=== PATIENT | female | born 1995 | race Caucasian/White ===

== ENCOUNTER 2016-09-26 09:26 | Emergency (ER) | payer BC ==
[2016-09-26 09:33] VITALS: BP 133/84; PULSE 94; TEMP 97.8; BMI 28.3
[2016-09-26] MEDS ORDERED: OXYCODONE/APAP 5/325MG COMBO TABLET PO ONE (10:19)
[2016-09-26] MEDS ORDERED: OXYCODONE/APAP 5/325MG COMBO TABLET ONE (10:22)
--- NOTE | 2016-09-26 10:27 | PDOC ---
History of Present Illness - General Chief Complaint: Abscess Boil Stated Complaint: WOUND ON BUTTOCK Time Seen by Provider: 09/26/16 09:45 History Source: Patient Exam Limitations: No Limitations - History of Present Illness Initial Comments: 09/26/16 10:58 20 yr female with c/o pilonidal abscess. Pt has had many times before. no fever or chills no abdominal pain. no medical history or allergies. Timing/Duration: reports: constant, getting worse Severity: Yes: moderate Past History - Past Medical History Allergies/Adverse Reactions: Allergies Allergy/AdvReac Type Severity Reaction Status Date / Time No Known Allergies Allergy Verified 09/26/16 09:31 Home Medications: Ambulatory Orders Oxycodone HCl/Acetaminophen [Percocet 5-325 mg Tablet] 1 tab PO Q6H PRN #8 tablet MDD 4 tabs 09/26/16 Other medical history: none - Immunization History Immunization Up to Date: Yes - Psycho/Social/Smoking Cessation Hx Anxiety: No Suicidal Ideation: No Smoking History: Never smoked Have you smoked in the past 12 months: No Number of Cigarettes Smoked Daily: 0 Cigars Per Day: 0 Information on smoking cessation initiated: No Hx Alcohol Use: No Drug/Substance Use Hx: No Substance Use Type: None Review of Systems - Review of Systems Able to Perform ROS?: Yes Is the patient limited Welsh proficient: No Constitutional: No: Symptoms Reported HEENTM: No: Symptoms Reported Respiratory: No: Symptoms reported Cardiac (ROS): No: Symptoms Reported ABD/GI: No: Symptoms Reported : No: Symptoms Reported Integumentary: Yes: See HPI *Physical Exam - Vital Signs Last Vital Signs Temp Pulse Resp BP Pulse Ox 97.8 F 94 H 18 133/84 100 09/26/16 09:31 09/26/16 09:31 09/26/16 09:31 09/26/16 09:31 09/26/16 09:31 - Physical Exam General Appearance: Yes: Nourished, Appropriately Dressed HEENT: positive: EOMI, STEVE Neck: positive: Supple Respiratory/Chest: positive: Lungs Clear, Normal Breath Sounds Cardiovascular: positive: Regular Rhythm, Regular Rate Integumentary: positive: Normal Color, Dry, Warm, Other (abscess to the right inner fold , pilonidal area , fluctuant [id number]) Neurologic: positive: Fully Oriented, Alert, Normal Mood/Affect, Normal Response , Motor Strength 5/5 Procedures - Incision and Drainage I&D Site: Right: Buttock (pilonidal area to the right inner fold of the buttock) Betadine cleansed: Yes Anesthesia: other (ethyl chloride spray) Blade Size: 11 Attempts: 1 Plain Packing: No Complications: none Dressing: Yes Progress: 09/26/16 11:03 wound culture obtained, purulent green yellow pus Medical Decision Making - Medical Decision Making 09/26/16 11:03 cc: pilonidal abscess without cellulitus wound culture taken pt tolerated I&D well dc inst given to pt with strict follow up with the general surgeon as pt has had many abscesses 09/26/16 11:05 *DC/Admit/Observation/Transfer Diagnosis at time of Disposition: Pilonidal abscess - Discharge Dispostion Disposition: HOME Condition at time of disposition: Improved - Prescriptions Prescriptions: Oxycodone HCl/Acetaminophen [Percocet 5-325 mg Tablet] 1 tab PO Q6H PRN #8 tablet MDD 4 tabs PRN Reason: Severe Pain - Referrals Referrals: Zoey Suazo MD [Primary Care Provider] - Jeevan Kebede MD [Staff Physician] - Coy Pierson [Staff Physician] - - Patient Instructions Additional Instructions: frequent warm sitz baths to keep the are clean and dry ( use a squirt bottle filled with warm water to gently clean the area) take percocet for pain take motrin 800mg also for pain , you can take with the percocet follow with the surgeon or the surgeon for follow up avoid frequent sitting
== END 2016-09-26 10:39 | disposition home or self-care (01) ==
LOC: JERFT 09:26
PROC: 0H98XZZ Drainage of Buttock Skin, External Approach (ICD-10-PCS; principal; 2016-09-26)
DX: L05.01 Pilonidal cyst with abscess (principal)
CPT/HCPCS: 87070; 87076; 87077; 87205; 99281-25

== ENCOUNTER 2017-05-26 05:14 | Day surgery (SDC) | payer BC ==
--- NOTE | 2017-05-26 05:36 | PDOC ---
History of Present Illness - General History Source: Patient, Parent(s) Exam Limitations: No Limitations - History of Present Illness Initial Comments: 05/26/17 07:00 Patient is a 21 year old female with no significant past medical history who presents to the ED with complaints of growth on lower back. Patient reports experiencing increased lower back pain last night that she states prevented her from sleeping, as well as associated oozing from growth, prompting her to come into the ED for further evaluation. She reports growth has come back every 6 months for the last 2 years. Patient reports going to surgeon once sometime ago but states she did not like the surgeon so she did not return. Denies chest pain, sob. Denies nausea, vomiting. Denies fevers, chills. Denies diarrhea, constipation, dysuria, hematuria. Denies any other symptoms. Allergies: None Social history: No smoking. No alcohol. No illicit drugs. Surgical history: None PMD: None <Marko Quintero - Last Filed: 05/26/17 07:00> <Maritza Bardales - Last Filed: 06/01/17 05:35> - General Stated Complaint: GROWTH ON LOWER BACK Time Seen by Provider: 05/26/17 05:36 Past History <Marko Quintero - Last Filed: 05/26/17 07:00> - Immunization History Immunization Up to Date: Yes - Suicide/Smoking/Psychosocial Hx Smoking History: Never smoked Have you smoked in the past 12 months: No Number of Cigarettes Smoked Daily: 0 Cigars Per Day: 0 Hx Alcohol Use: No Drug/Substance Use Hx: No Substance Use Type: None <Maritza Bardales - Last Filed: 06/01/17 05:35> - Past Medical History Allergies/Adverse Reactions: Allergies Allergy/AdvReac Type Severity Reaction Status Date / Time No Known Allergies Allergy Verified 05/26/17 05:53 Home Medications: Ambulatory Orders Amox-Tr/K Cl [Augmentin - 875Mg Tablet] 1 tab PO BID 10 Days #20 tablet Ibuprofen [Motrin -] 600 mg PO Q6H PRN tablet 05/26/17 metroNIDAZOLE [Flagyl -] 500 mg PO TID #10 tablet 05/26/17 Review of Systems - Review of Systems Able to Perform ROS?: Yes Comments:: 05/26/17 07:00 GENERAL/CONSTITUTIONAL: No fever or chills. No weakness. HEAD, EYES, EARS, NOSE AND THROAT: No change in vision. No ear pain or discharge. No sore throat. CARDIOVASCULAR: No chest pain or shortness of breath. RESPIRATORY: No cough, wheezing, or hemoptysis. GASTROINTESTINAL: No nausea, vomiting, diarrhea or constipation. GENITOURINARY: No dysuria, frequency, or change in urination. MUSCULOSKELETAL: No joint or muscle swelling or pain. No neck or back pain. SKIN: +Lower back growth NEUROLOGIC: No headache, vertigo, loss of consciousness, or change in strength/ sensation. ENDOCRINE: No increased thirst. No abnormal weight change. HEMATOLOGIC/LYMPHATIC: No anemia, easy bleeding, or history of blood clots. ALLERGIC/IMMUNOLOGIC: No hives or skin allergy. <Marko Quintero - Last Filed: 05/26/17 07:00> *Physical Exam - Vital Signs Last Vital Signs Temp Pulse Resp BP Pulse Ox 97.7 F 72 18 110/70 99 05/26/17 05:54 05/26/17 05:54 05/26/17 05:54 05/26/17 05:54 05/26/17 05:54 - Physical Exam Comments: 05/26/17 07:00 GENERAL: Awake, alert, and fully oriented, in no acute distress HEAD: No signs of trauma EYES: PERRLA, EOMI, sclera anicteric, conjunctiva clear ENT: Auricles normal inspection, hearing grossly normal, nares patent, oropharynx clear without exudates. Moist mucosa NECK: Normal ROM, supple, no lymphadenopathy, JVD, or masses LUNGS: Breath sounds equal, clear to auscultation bilaterally. No wheezes, and no crackles HEART: Regular rate and rhythm, normal S1 and S2, no murmurs, rubs or gallops ABDOMEN: Soft, nontender, normoactive bowel sounds. No guarding, no rebound. No masses EXTREMITIES: Normal range of motion, no edema. No clubbing or cyanosis. No cords, erythema, or tenderness NEUROLOGICAL: Cranial nerves II through XII grossly intact. Normal speech, normal gait SKIN: +1.5 cm diameter round bulging abscess with 3 cm erythematous surrounding on lower back. Warm, Dry, normal turgor, no rashes or lesions noted. <Marko Quintero - Last Filed: 05/26/17 07:00> ED Treatment Course - LABORATORY CBC & Chemistry Diagram: 05/26/17 06:27 05/26/17 06:27 - ADDITIONAL ORDERS Additional order review: Laboratory Results 05/26/17 05:52 POC Glucometer [id number] 05/26/17 05:52 POC Glucometer [id number] <Marko Quintero - Last Filed: 05/26/17 07:00> - LABORATORY CBC & Chemistry Diagram: 05/26/17 06:27 05/26/17 06:27 <Maritza Bardales - Last Filed: 06/01/17 05:35> Medical Decision Making - Medical Decision Making 05/26/17 06:12 Pt returns with her pilonidal cyst. I will call for a surgical consult this AM. 05/26/17 06:37 We will not drain the abscess in the ER, as pt kees returning, and the cyst progessively gets worse/ 05/26/17 07:[address] [facility] [address] Nesbitt and he has not returned page. Consult placed in the computer. Pt understands that we are waiting for gen surg. Pt will be signed out to the day ER team. <Maritza Bardales - Last Filed: 06/01/17 05:35> *DC/Admit/Observation/Transfer - Attestations Scribe Attestion: 05/26/17 07:00 Documentation prepared by Marko Quintero, acting as resident medical officer for Maritza Bardales MD/DO. <Marko Quintero - Last Filed: 05/26/17 07:00> <Maritza Bardales - Last Filed: 06/01/17 05:35> Diagnosis at time of Disposition: Pilonidal abscess - Discharge Dispostion Disposition: HOME Condition at time of disposition: Improved
[2017-05-26 06:05] VITALS: BMI 24.9
[2017-05-26 06:47] LABS: BASO % 0.6 % (0-2.0); EOS % 0.4 % (0-4.5); HEMATOCRIT 38.7 % (32.4-45.2); HEMOGLOBIN 12.8 GM/dL (10.7-15.3); LYMPH % 15.5 % (8-40); MCH 28.3 pg (25.7-33.7); MCHC 33.2 g/dl (32.0-36.0); MEAN CELL VOLUME 85.1 fl (80-96); MEAN PLT VOLUME 9.1 fl (7.5-11.1); MONO % 7.6 % (3.8-10.2); NEUT % 75.9 % (42.8-82.8); PLATELET COUNT 339 K/MM3 (134-434); RBC 4.54 M/mm3 (3.60-5.2); RDW 15.6 % (11.6-15.6); WHITE BLOOD COUNT 12.8 K/mm3 (4.0-10.0)
[2017-05-26 07:09] LABS: INR 1.28 (0.82-1.09); PROTHROMBIN TIME (PATIENT) 14.5 SEC (9.98-11.88)
[2017-05-26 07:30] LABS: ALK PHOS 82 U/L (45-117); ANION GAP 7 (8-16); BILIRUBIN,TOTAL 0.8 mg/dL (0.2-1.0); BLOOD UREA NITROGEN 8 mg/dL (7-18); CALCIUM 9.1 mg/dL (8.5-10.1); CHLORIDE 107 mmol/L (98-107); CO2 26 mmol/L (21-32); CREATININE 0.7 mg/dL (0.55-1.02); GLUCOSE,RANDOM 99 mg/dL (74-106); SGOT/AST 10 U/L (15-37); SGPT/ALT 12 U/L (12-78); SODIUM 140 mmol/L (136-145); TOT PROT 8.1 g/dl (6.4-8.2)
--- NOTE | 2017-05-26 07:35 | PDOC ---
*Physical Exam - Vital Signs Last Vital Signs Temp Pulse Resp BP Pulse Ox 97.7 F 72 18 110/70 99 05/26/17 05:54 05/26/17 05:54 05/26/17 05:54 05/26/17 05:54 05/26/17 05:54 <Denisse Fonseca - Last Filed: 05/26/17 08:01> - Vital Signs Last Vital Signs Temp Pulse Resp BP Pulse Ox 97.7 F 72 18 110/70 99 05/26/17 05:54 05/26/17 05:54 05/26/17 05:54 05/26/17 05:54 05/26/17 05:54 <Mary De Guzman - Last Filed: 05/26/17 16:06> ED Treatment Course - LABORATORY CBC & Chemistry Diagram: 05/26/17 06:27 05/26/17 06:27 - ADDITIONAL ORDERS Additional order review: Laboratory Results 05/26/17 05/26/17 06:27 05:52 PT with INR 14.50 H INR 1.28 H POC Glucometer [id number] 05/26/17 05/26/17 06:27 05:52 RBC 4.54 MCV 85.1 MCHC 33.2 RDW 15.6 MPV 9.1 Neutrophils % 75.9 Lymphocytes % 15.5 Monocytes % 7.6 Eosinophils % 0.4 Basophils % 0.6 POC Glucometer [id number] <Denisse Fonseca - Last Filed: 05/26/17 08:01> - LABORATORY CBC & Chemistry Diagram: 05/26/17 06:27 05/26/17 06:27 - ADDITIONAL ORDERS Additional order review: Laboratory Results 05/26/17 05:52 POC Glucometer [id number] 05/26/17 05:52 POC Glucometer [id number] <Mary De Guzman - Last Filed: 05/26/17 16:06> Medical Decision Making - Medical Decision Making 05/26/17 07:[address] Nesbitt (Gen Surgery). <Denisse Fonseca - Last Filed: 05/26/17 08:01> - Medical Decision Making 05/26/17 09:19 Dr. Nesbitt at bedside, recommended resecting the cyst in OR, as it is a significant size. Patient agrees, to be admitted to Dr. Nesbitt. <Mary De Guzman - Last Filed: 05/26/17 16:06> *DC/Admit/Observation/Transfer <Denisse Fonseca - Last Filed: 05/26/17 08:01> - Discharge Dispostion Admit: Yes <Mary De Guzman - Last Filed: 05/26/17 16:06> Diagnosis at time of Disposition: Pilonidal abscess - Discharge Dispostion Condition at time of disposition: Improved
[2017-05-26] MEDS ORDERED: MORPHINE SULFATE 10 MG/1 ML *VIAL IVPUSH PRN (09:29)
[2017-05-26] MEDS ORDERED: IBUPROFEN 600 MG TABLET (FP) PO PRN (09:29)
[2017-05-26] MEDS ORDERED: ONDANSETRON 4 MG/2 ML VIAL IVPUSH PRN ×2 (09:29→11:55)
--- NOTE | 2017-05-26 09:29 | CONSULT ---
Consult Consult Specialty:: general surgery Referred by:: Zayra De Guzman Reason for Consultation:: pilonidal abscess - History of Present Illness Chief Complaint: recurrent pilonidal abscess History of Present Illness: 21-year-old female no PMH presents to the emergency department complaint of swelling to her right superior medial buttocks. She has seen at least 4 times for I&D of the pilonidal abscess but its recurrent in the same area. Patient states that she has had 5 form at this point in the past. Patient states that she did see her primary care physician today who evaluated the area, started the patient clindamycin and referred her to a surgeon. Patient states that she came to the emergency department because the pain continues to worsen. Patient denies fever or chills. We were asked to assess. - History Source History Provided By: Patient, Medical Record Limitations to Obtaining History: No Limitations - Past Surgical History Additional Surgical History: excsion of breast fibroadenoma - Alcohol/Substance Use Hx Alcohol Use: No - Smoking History Smoking history: Never smoked Have you smoked in the past 12 months: No Aproximately how many cigarettes per day: 0 - Social History Place of : [facility] History of Recent Travel: No Home Medications - Allergies Allergies/Adverse Reactions: Allergies Allergy/AdvReac Type Severity Reaction Status Date / Time No Known Allergies Allergy Verified 05/26/17 05:53 - Home Medications Home Medications: Ambulatory Orders NK [No Known Home Medication] 05/26/17 Review of Systems - Review of Systems Constitutional: denies: Chills, Fever Eyes: denies: Blind Spots, Recent Change in Vision Neck: denies: Lumps, Swollen Glands Cardiovascular: denies: Chest Pain, Palpitations Respiratory: denies: Cough, SOB Gastrointestinal: denies: Abdominal Pain, Constipation, Diarrhea, Indigestion Genitourinary: denies: Discharge, Dysuria Breasts: reports: No Symptoms Reported. denies: Pain Musculoskeletal: denies: Extremity Pain, Muscle Pain, Muscle Weakness Integumentary: reports: Wound (right gluteal). denies: Erythema, Lesions, Rash Neurological: denies: Change in LOC, Seizure, Syncope, Tremors Endocrine: denies: Unexplained Weight Gain, Unexplained Weight Loss Hematology/Lymphatic: denies: Easily Bruised, Excessive Bleeding Psychiatric: denies: Anxiety, Depression Physical Exam Vital Signs: Vital Signs Temperature 97.7 F 05/26/17 05:54 Pulse Rate 72 05/26/17 05:54 Respiratory Rate 18 05/26/17 05:54 Blood Pressure 110/70 05/26/17 05:54 O2 Sat by Pulse Oximetry (%) 99 05/26/17 05:54 Vital Signs Period Temp Pulse Resp BP Sys/Mar Pulse Ox Last 24 Hr 97.7 F-98.6 F 66-72 18-18 110-116/70-74 99-99 Constitutional: Yes: Well Nourished, No Distress, Calm Eyes: Yes: Conjunctiva Clear, EOM Intact HENT: Yes: Atraumatic, Normocephalic Neck: Yes: Supple, Trachea Midline Cardiovascular: Yes: Regular Rate and Rhythm, S1, S2. No: Murmur Respiratory: Yes: Regular, CTA Bilaterally Gastrointestinal: Yes: Normal Bowel Sounds, Soft. No: Hemorrhoids, Tenderness ...Rectal Exam: Yes: Guaiac Negative, Sphincter Tone Normal, Other (right upper gluteal fold [id number] fluctuant area) Renal/: No: CVA Tenderness - Left, CVA Tenderness - Right Musculoskeletal: No: Muscle Pain, Muscle Weakness Extremities: No: Cool, Cyanosis Neurological: No: Alert, Oriented Psychiatric: No: Alert, Oriented Labs: CBC, BMP 05/26/17 06:27 05/26/17 06:27 Problem List - Problems (1) Pilonidal abscess Assessment/Plan: 21yo with right sided pilonidal abscess, recurrent and acutely infected. NPO and IVF hydration empiric antibiotics ID consult adequate analgesia D/C with Wound Care OR for incision and drainage and debridement of pilonidal abscess - Discussed with patient risks, benefits and alternatives of proposed procedure, including but not limited to bleeding, infection, injury to adjacent structures, scar recurent abscess, need for further procedures, ; alternatives include antibiotics, delayed or no surgery - risks of this include failure of nonoperative therapy, sepsis, recurrence, . Patient desires to proceed with operation - will take to OR for above. Informed consent signed for same. Code(s): L05.01 - PILONIDAL CYST WITH ABSCESS (2) Leukocytosis (leucocytosis) Code(s): D72.829 - ELEVATED WHITE BLOOD CELL COUNT, UNSPECIFIED
[2017-05-26] MEDS ORDERED: LACTATED RINGERS SOLUTION 1,000 ML IV SCH ×2 (09:30→12:00)
[2017-05-26] MEDS ORDERED: PIPERACIL/TAZOB 3.375 GM 3.375 GM/50 ML PREMIX IVPB ONE (09:45)
[2017-05-26] MEDS ORDERED: PIPERACILLIN/TAZOB 3.375 GM 3.375 GM/50 ML BAG IVPB ONE (09:53)
[2017-05-26] MEDS ORDERED: LIDOCAINE HCL 1%, 10 MG/ML (20ML VIAL) ONE (11:58)
[2017-05-26] MEDS ORDERED: BUPIVACAINE HCL/PF 0.5% (5MG/ML) 10 ML VIAL ONE (11:58)
[2017-05-26] MEDS ORDERED: MIDAZOLAM HCL 2 MG/2 ML SINGLE DOSE VIAL ONE (12:13)
[2017-05-26] MEDS ORDERED: PROPOFOL 20 ML ONE (12:17)
[2017-05-26] MEDS ORDERED: ROCURONIUM BROMIDE 50 MG/5 ML VIAL ONE (12:17)
--- NOTE | 2017-05-26 12:17 | HP ---
Admitting History and Physical - Admission Chief Complaint: recurrent pilonidal cyst History of Present Illness: 21-year-old female no PMH presents to the emergency department complaint of swelling to her right superior medial buttocks. She has seen at least 4 times for I&D of the pilonidal abscess but its recurrent in the same area. Patient states that she has had 5 form at this point in the past. Patient states that she did see her primary care physician today who evaluated the area, started the patient clindamycin and referred her to a surgeon. Patient states that she came to the emergency department because the pain continues to worsen. Patient denies fever or chills. We were asked to assess. History Source: Patient, Medical Record Limitations to Obtaining History: No Limitations - Past Medical History ...: No - Smoking History Smoking history: Never smoked Have you smoked in the past 12 months: No Aproximately how many cigarettes per day: 0 - Alcohol/Substance Use Hx Alcohol Use: No - Social History History of Recent Travel: No Home Medications - Allergies Allergies/Adverse Reactions: Allergies Allergy/AdvReac Type Severity Reaction Status Date / Time No Known Allergies Allergy Verified 05/26/17 05:53 - Home Medications Home Medications: Ambulatory Orders NK [No Known Home Medication] 05/26/17 Review of Systems - Review of Systems Constitutional: denies: Chills, Fever Eyes: denies: Blurred Vision, Recent Change in Vision HENT: denies: Difficult Swallowing, Throat Pain Neck: denies: Lumps, Swollen Glands Cardiovascular: denies: Chest Pain, Palpitations Respiratory: denies: Cough, SOB Gastrointestinal: denies: Abdominal Pain, Constipation, Diarrhea, Indigestion Genitourinary: denies: Discharge, Dysuria Breasts: reports: No Symptoms Reported. denies: Pain Musculoskeletal: denies: Back Pain, Muscle Pain, Muscle Weakness Integumentary: denies: Lump, Rash Neurological: denies: Seizure, Syncope, Tremors Endocrine: denies: Unexplained Weight Gain, Unexplained Weight Loss Psychiatric: denies: Anxiety, Depression Physical Examination Vital Signs: Vital Signs Temperature 98.6 F 05/26/17 09:33 Pulse Rate 60 05/26/17 11:15 Respiratory Rate 18 05/26/17 11:15 Blood Pressure 120/56 05/26/17 11:15 O2 Sat by Pulse Oximetry (%) 99 05/26/17 11:15 Constitutional: Yes: Well Nourished, No Distress, Calm Eyes: Yes: Conjunctiva Clear, EOM Intact HENT: Yes: Atraumatic, Normocephalic Neck: Yes: Supple, Trachea Midline Cardiovascular: Yes: Regular Rate and Rhythm, S1, S2 Respiratory: Yes: Regular, CTA Bilaterally Gastrointestinal: Yes: Normal Bowel Sounds, Soft ...Rectal Exam: Yes: Other ([id number] fluctuant area right upper gluteal fold) Renal/: No: CVA Tenderness - Left, CVA Tenderness - Right Extremities: No: Cool, Cyanosis Edema: No Peripheral Pulses WNL: Yes Peripheral Pulses: Left Radial: 2+, Right Radial: 2+, Left Doralis Pedis: 2+, Right Dorsalis Pedis: 2+, Left Femoral: 2+, Right Femoral: 2+ Neurological: Yes: Alert, Oriented Psychiatric: Yes: Alert, Oriented Labs: CBC, BMP 05/26/17 06:27 05/26/17 06:27 Problem List - Problems (1) Pilonidal abscess Assessment/Plan: 21yo with right sided pilonidal abscess, recurrent and acutely infected. NPO and IVF hydration empiric antibiotics ID consult adequate analgesia D/C with Wound Care OR for incision and drainage and debridement of pilonidal abscess - Discussed with patient risks, benefits and alternatives of proposed procedure, including but not limited to bleeding, infection, injury to adjacent structures, scar recurent abscess, need for further procedures, ; alternatives include antibiotics, delayed or no surgery - risks of this include failure of nonoperative therapy, sepsis, recurrence, . Patient desires to proceed with operation - will take to OR for above. Informed consent signed for same. Code(s): L05.01 - PILONIDAL CYST WITH ABSCESS (2) Leukocytosis (leucocytosis) Code(s): D72.829 - ELEVATED WHITE BLOOD CELL COUNT, UNSPECIFIED
--- NOTE | 2017-05-26 12:31 | CON.ID ---
Consult Consult Specialty:: infectious diseases Referred by:: Reason for Consultation:: non healing gluetal fistula - History of Present Illness Chief Complaint: abscess gluetal recurring History of Present Illness: 21-year-old female no PMH admitted because of swelling to her right superior medial buttocks. patient has had multiple I&D of the pilonidal abscess but its recurrent in the same area. Patient states that she has had 5 form at this point in the past. patient was started by her pcp on clindamycin and was referred here patient was seen by the surgery department and is taking the patient for surgery - History Source History Provided By: Patient Limitations to Obtaining History: No Limitations - Past Medical History ...: No - Past Surgical History Additional Surgical History: excsion of breast fibroadenoma - Alcohol/Substance Use Hx Alcohol Use: No - Smoking History Smoking history: Never smoked Have you smoked in the past 12 months: No Aproximately how many cigarettes per day: 0 - Social History History of Recent Travel: No Home Medications - Allergies Allergies/Adverse Reactions: Allergies Allergy/AdvReac Type Severity Reaction Status Date / Time No Known Allergies Allergy Verified 05/26/17 05:53 - Home Medications Home Medications: Ambulatory Orders Amox-Tr/K Cl [Augmentin - 875Mg Tablet] 1 tab PO BID 10 Days #20 tablet Review of Systems - Review of Systems Constitutional: reports: No Symptoms Eyes: reports: No Symptoms HENT: reports: No Symptoms Neck: reports: No Symptoms Cardiovascular: reports: No Symptoms Respiratory: reports: No Symptoms Gastrointestinal: reports: No Symptoms Genitourinary: reports: Other (gluetal abscess) Musculoskeletal: reports: No Symptoms Integumentary: reports: No Symptoms Neurological: reports: No Symptoms Endocrine: reports: No Symptoms Hematology/Lymphatic: reports: No Symptoms Psychiatric: reports: No Symptoms Physical Exam Vital Signs: Vital Signs Temperature 98.6 F 05/26/17 09:33 Pulse Rate 60 05/26/17 11:15 Respiratory Rate 18 05/26/17 11:15 Blood Pressure 120/56 05/26/17 11:15 O2 Sat by Pulse Oximetry (%) 99 05/26/17 11:15 Constitutional: Yes: Well Nourished, No Distress, Calm Eyes: Yes: Conjunctiva Clear HENT: Yes: Atraumatic, Normocephalic Cardiovascular: Yes: Regular Rate and Rhythm Respiratory: Yes: Regular, CTA Bilaterally Gastrointestinal: Yes: Normal Bowel Sounds, Soft Musculoskeletal: Yes: WNL Extremities: Yes: WNL Neurological: Yes: Alert, Oriented Psychiatric: Yes: Alert, Oriented Labs: CBC, BMP 05/26/17 06:27 05/26/17 06:27 Assessment/Plan patient stable going for surgery Problem List - Problems (1) Pilonidal abscess Code(s): L05.01 - PILONIDAL CYST WITH ABSCESS (2) Leukocytosis (leucocytosis) Code(s): D72.829 - ELEVATED WHITE BLOOD CELL COUNT, UNSPECIFIED plan patient can be started on augmentin 875mg bid for 10 days and add flagyl 500 mg tid po for 10 days
[2017-05-26] MEDS ORDERED: fentaNYL CITRATE 250 MCG/5 ML VIAL ONE (12:32)
[2017-05-26] MEDS ORDERED: LIDOCAINE HCL 1%, 10 MG/ML (20ML VIAL) INF ONE (12:32)
[2017-05-26] MEDS ORDERED: BUPIVACAINE HCL/PF 0.5% (5MG/ML) 10 ML VIAL IJ ONE (12:32)
[2017-05-26] MEDS ORDERED: NEOSTIGMINE METHYLSULFATE 0.5 MG/ML - 10 ML MDV ONE (12:43)
--- NOTE | 2017-05-26 13:16 | DS ---
Physical Examination Vital Signs: Vital Signs Temperature 98.6 F 05/26/17 09:33 Pulse Rate 60 05/26/17 11:15 Respiratory Rate 18 05/26/17 11:15 Blood Pressure 120/56 05/26/17 11:15 O2 Sat by Pulse Oximetry (%) 99 05/26/17 11:15 Vital Signs Period Temp Pulse Resp BP Sys/Mar Pulse Ox Last 24 Hr 97.7 F-99.0 F 60-93 11-20 110-134/56-75 95-100 Constitutional: Yes: Well Nourished, No Distress, Calm Eyes: Yes: Conjunctiva Clear, EOM Intact HENT: Yes: Atraumatic, Normocephalic Neck: Yes: Supple, Trachea Midline Cardiovascular: Yes: Regular Rate and Rhythm, S1, S2. No: Murmur Respiratory: Yes: Regular, CTA Bilaterally Gastrointestinal: Yes: Normal Bowel Sounds, Soft. No: Tenderness ...Rectal Exam: Yes: Deferred Renal/: No: CVA Tenderness - Left, CVA Tenderness - Right Wound/Incision: Yes: Clean/Dry, Dressing Dry and Intact, Unapproximated (right upper gluteal fold.) Neurological: Yes: Alert, Oriented Psychiatric: Yes: Alert, Oriented Labs: CBC, BMP 05/26/17 06:27 05/26/17 06:27 Discharge Summary Reason For Visit: PILONIDAL CYST WITH ABSCESS Current Active Problems Leukocytosis (leucocytosis) (Acute) Pilonidal abscess (Acute) Procedures: Principal: pilonidal abscess Other Procedures: incision and drainge, debridement of pilonidal abscess Hospital Course: 21yo female presented with a recurrent pilonidal abscess. She was taken for an uneventful drainage and debridement procedure in the operating room. She tolerated it well and be discharged home with VNS for wound care teaching and oral antibiotics. Pilonidal wound: Wound measurement: right superior gluteal fold, 2cm X 2cm X2cm with clean soft tissue at the base not drainage Dressing instructions: 1" iodoform, 4X4 gauze sponges, and 2" tape Condition: Improved - Instructions Diet, Activity, Other Instructions: Postoperative instructions: You had a debridement of pilonidal abscess on by Dr. Epifanio Nesbitt of [facility]. Pilonidal wound: Wound measurement: right superior gluteal fold, 2cm X 2cm X2cm with clean soft tissue at the base not drainage Dressing instructions: 1" iodoform, 4X4 gauze sponges, and 2" tape Activity: Resume your usual activities gradually. Dressing daily 24 hours after surgery by VNS. You may shower daily starting then, just pat the incision areas dry. Eat lightly at first, but advance to your usual diet as tolerated. Pain: For pain, you may use and alternate Tylenol (acetaminophen) and/or ibuprofen every 6 hours each as needed; this means that you can take one OR the other at 3-hour intervals. If you are prescribed a Tylenol/narcotic combination for severe pain, use it instead of plain Tylenol as needed and switch back when your pain starts decreasing. Do not take more than 4000mg of acetaminophen in a day. Take medications as prescribed or indicated on the labeling. Follow-up: Call Dr. Nesbitt' office at [phone] to make your postop appointment (Friday 1-2 weeks after surgery as advised). Clinic is held in the Diagnostic [facility] on the first floor of [facility]. Call the office if you have: * increasing pain not responsive to pain medication * fever of 101F or higher * vomiting * unusual or increasing bleeding or drainage from wounds * increasing redness or swelling at wound sites Also, see your primary medical doctor within 1-2 weeks. Disposition: HOME - Home Medications Comprehensive Discharge Medication List: Ambulatory Orders Amox-Tr/K Cl [Augmentin - 875Mg Tablet] 1 tab PO BID 10 Days #20 tablet metroNIDAZOLE [Flagyl -] 500 mg PO TID #10 tablet 05/26/17
[2017-05-26 15:33] VITALS: TEMP 98.6
[2017-05-26 17:08] VITALS: BP 130/62; PULSE 81
--- NOTE | 2017-05-26 23:13 | EKG ---
Test Reason : Blood Pressure : / mmHG Vent. Rate : 076 BPM Atrial Rate : 076 BPM P-R Int : 122 ms QRS Dur : 088 ms QT Int : 376 ms P-R-T Axes : -26 020 002 degrees QTc Int : 423 ms NORMAL SINUS RHYTHM NORMAL ECG NO PREVIOUS ECGS AVAILABLE Confirmed by WILLIAM KURTZ MD ([id number]) on 05/26/2017 11:13:05 PM Referred By: Confirmed By:WILLIAM KURTZ MD
--- NOTE | 2017-05-27 16:19 | OP ---
DATE OF OPERATION: 05/26/2017 PREOPERATIVE DIAGNOSIS: Right-sided pilonidal area abscess. POSTOPERATIVE DIAGNOSIS: Right-sided pilonidal area abscess. PROCEDURE: Incision, drainage, and debridement of right-sided pilonidal abscess. ATTENDING SURGEON: Epifanio Nesbitt MD SITE SURVEYOR: No one. ANESTHESIA: Richelle Majano MD ESTIMATED BLOOD LOSS: 10 mL INTRAVENOUS FLUID: 600. SPECIMEN SENT: Pilonidal area abscess cavity and culture for sensitivity and Gram stain. DRAINAGE: Approximately 10 mL of foul-smelling, purulent material. INDICATION: Patient is a 21-year-old female presenting with a 4-year history with 5 episodes of recurrent pilonidal abscess in the upper gluteal fold in the pilonidal region on the right side. She had incision and drainage on at least 3 occasions with recurrence of abscess and symptoms. She noted approximately 4 days ago she had increase in pain and swelling in the area. She presented for incision and drainage. She was counseled regarding the need for incision, drainage, and debridement given her recurrent history. She was counseled regarding risks, benefits, and alternatives including scar, blood loss, worsening infection, and recurrence. She signed informed consent, was taken for the procedure. DESCRIPTION OF PROCEDURE: Patient was brought to the operating room, placed in supine position on the operating table. She had bilateral SCDs applied. She was induced with general anesthesia, endotracheally intubated. She received intravenous Zosyn prior to presenting in the operating room. Once intubated and having her airway secured, was placed into left lateral decubitus position, bolstering with a shoulder roll, a head support, and additional padding for any bony prominences. This allowed for access to the upper gluteal fold on the right side and the pilonidal region. The area was prepped and draped in standard surgical fashion. At which point, we proceeded with a timeout, all parties in agreement. We proceeded then with scribing an elliptical incision around what appeared to be the abscess cavity as palpated from the skin. The incision was incised with a 15-blade scalpel, deepened and widened through the subcutaneous tissue. Bovie cautery was used to obtain hemostasis throughout the dissection. There was a gush of pus which was sent for culture and sensitivity. The remainder of the ellipse was excised from the site. The abscess cavity was then debrided using an Allis to retract the soft tissue which appeared infected and involved in the process with cautery and scissors. Once the abscess cavity was cleared from the site, it was sent for pathologic diagnosis. We proceeded then with irrigation of the cavity, and hemostasis using cautery. The site was packed. Pressure was held for a period of 2 minutes, and additional hemostasis was obtained with cautery. The site was irrigated copiously with approximately 0.5 L of sterile irrigation fluid. The site was then cleaned and packed with 1-inch Iodoform packing. The skin was cleaned. A sterile dressing of 4 x 4 gauze and an ABD pad was applied with tape. The patient was then returned to the supine position. At which point, she was extubated in the operating room, having tolerated the procedure well. She returned to Ambulatory Surgery in stable condition. Counts were correct, specimens were sent, and patient was planned for followup with VNS for wound care and oral antibiotics. MD PENNY Wright/[id number]
--- NOTE | 2017-05-27 17:45 | PATH ---
Surgical Pathology Report Patient Name: NEVIN SIMS [facility]. Rec. #: [id number] /Age/Gender: 1995 (Age: 21) / F Account: [id number] Location: AMBULATORY SURG Taken: 05/26/2017 Received: 05/26/2017 Reported: 05/27/2017 Physicians: Epifanio Nesbitt M.D. Specimen(s) Received PILONIDAL CYST Clinical History Pilonidal abscess Final Diagnosis SKIN, PILONIDAL TISSUE, EXCISION: SKIN AND UNDERLYING SUBCUTANEOUS TISSUE WITH MARKED ACUTE AND CHRONIC INFLAMMATION CONSISTENT WITH ABSCESS. Electronically Signed Savannah Salcedo M.D. Gross Description Received in formalin labeled "pilonidal tissue," is a 2.7 x 1.8 cm vines, elliptical, unoriented portion of skin excised to depth of 1.0 cm. The epidermal surface displays a central nodular lesion. Sectioning reveals a possible abscess. Production Line Worker sections are submitted in one cassette. /05/26/2017 [facility]05/26/2017
== END 2017-05-26 17:11 | disposition home or self-care (01) ==
LOC: JER 05:14 → JASUSAT 09:19
PROC: 0JB90ZZ Excision of Buttock Subcutaneous Tissue and Fascia, Open Approach (ICD-10-PCS; principal; 2017-05-26 14:00)
DX: L05.01 Pilonidal cyst with abscess (principal)
CPT/HCPCS: 36415; 80053; 82962; 84703; 85025; 85610; 86850; 86900; 86901; 87070; 87205; 88304-TC; 93005; 93010; 94760; 99285-25

== ENCOUNTER 2018-02-15 07:35 | Inpatient (IN) | payer OTHER, BC ==
[2018-02-15] MEDS ORDERED: PROMETHAZINE HCL 25 MG/1 ML VIAL IVPUSH ONE (08:22)
[2018-02-15] MEDS ORDERED: BUTORPHANOL TARTRATE 1 MG/ML VIAL IVPUSH PRN (08:22)
[2018-02-15] MEDS ORDERED: DEXTROSE 5%-LACTATED RINGERS 1,000 ML IV SCH (08:30)
[2018-02-15 08:49] VITALS: BMI 33.7
[2018-02-15 09:20] LABS: BASO % 0.2 % (0-2.0); HEMATOCRIT 40.3 % (32.4-45.2); HEMOGLOBIN 13.7 GM/dL (10.7-15.3); LYMPH % 9.3 % (8-40); MCH 30.6 pg (25.7-33.7); MEAN CELL VOLUME 90.3 fl (80-96); MEAN PLT VOLUME 9.6 fl (7.5-11.1); MONO % 3.1 % (3.8-10.2); NEUT % 87.4 % (42.8-82.8); PLATELET COUNT 256 K/MM3 (134-434); RBC 4.46 M/mm3 (3.60-5.2); RDW 14.3 % (11.6-15.6); WHITE BLOOD COUNT 10.2 K/mm3 (4.0-10.0)
[2018-02-15 10:02] LABS: INR 1.04 (0.83-1.09); PROTHROMBIN TIME (PATIENT) 12.3 SEC (9.7-13.0)
[2018-02-15 10:05] LABS: ACTIVATED PTT 27.2 SECONDS (25.2-36.5)
[2018-02-15 10:15] LABS: ANION GAP 10 MMOL/L (8-16); BLOOD UREA NITROGEN 8 mg/dL (7-18); CALCIUM 9.5 mg/dL (8.5-10.1); CHLORIDE 104 mmol/L (98-107); CO2 23 mmol/L (21-32); CREATININE 0.6 mg/dL (0.55-1.3); GLUCOSE,RANDOM 97 mg/dL (74-106); POTASSIUM 4.2 mmol/L (3.5-5.1); SODIUM 138 mmol/L (136-145)
[2018-02-15] MEDS ORDERED: BUTORPHANOL TARTRATE 1 MG/ML VIAL ONE ×4 (10:16→13:55)
[2018-02-15] MEDS ORDERED: PROMETHAZINE HCL 25 MG/1 ML VIAL ONE ×2 (10:17→13:55)
[2018-02-15] MEDS ORDERED: PROMETHAZINE HCL 25 MG/1 ML VIAL IVPB ONE (13:50)
[2018-02-15] MEDS ORDERED: BUTORPHANOL TARTRATE 1 MG/ML VIAL IVPB ONE (13:50)
[2018-02-15] MEDS ORDERED: OXYTOCIN 20 UNITS in 0.9% NS 20 UNIT/1,000 ML INFUS.BAG IV ONE (17:15)
[2018-02-15] MEDS ORDERED: LIDOCAINE HCL 1% PRESERVATIVE FREE - 30ML VIAL ONE (17:58)
--- NOTE | 2018-02-15 18:22 | PN ---
Progress Note (short form) - Note Progress Note: cx full 100 vx, 3 + , arom, clear, fhr ca1, wants to push
--- NOTE | 2018-02-15 18:27 | HP ---
Past Medical History - Primary Care Physician PCP:: Javon Tee - Admission Chief Complaint: 40.2 weeks, labor History of Present Illness: 33 yo f g 1 p0000, 40.2 weeks, c/o contraction, no rom, cx 3 cm 80 vx -1 mi, ghr cat 1, regular contraction History Source: Patient Limitations to Obtaining History: No Limitations - Past Medical History ...: 1 ...Para: 0 ...Term: 0 ...: 0 ...Spon : 0 ...Induced : 0 ...Multiple Gestation: 0 ...LMP: 05/17/17 ... Weeks Gestation by Dates: 39.1 ...EDC by Dates: 02/21/18 ...EDC by Sono: 02/13/18 - Past Surgical History Hx Myomectomy: No Hx Transabdominal Cerclage: No Additional Surgical History: pilonidial cyst excision - Smoking History Smoking history: Never smoked Have you smoked in the past 12 months: No Aproximately how many cigarettes per day: 0 - Alcohol/Substance Use Hx Alcohol Use: No - Social History History of Recent Travel: No Home Medications - Allergies Allergies/Adverse Reactions: Allergies Allergy/AdvReac Type Severity Reaction Status Date / Time No Known Allergies Allergy Verified 02/15/18 08:13 - Home Medications Home Medications: Ambulatory Orders Vit/Iron Fum/Folic AC [ Tablet] 1 each PO DAILY 10/09/17 Review of Systems - Review of Systems Constitutional: reports: No Symptoms Eyes: reports: No Symptoms HENT: reports: No Symptoms Neck: reports: No Symptoms Cardiovascular: reports: No Symptoms Respiratory: reports: No Symptoms Gastrointestinal: reports: No Symptoms Genitourinary: reports: No Symptoms Breasts: reports: No Symptoms Reported Integumentary: reports: No Symptoms Neurological: reports: No Symptoms Endocrine: reports: No Symptoms Hematology/Lymphatic: reports: No Symptoms Psychiatric: reports: No Symptoms Physical Exam - Maternity Vital Signs: Vital Signs Temperature 98.6 F 02/15/18 17:09 Pulse Rate 101 H 02/15/18 17:09 Respiratory Rate 20 02/15/18 17:09 Blood Pressure 136/86 02/15/18 17:09 O2 Sat by Pulse Oximetry (%) Constitutional: Yes: Well Nourished, No Distress, Calm Eyes: Yes: WNL, Conjunctiva Clear, EOM Intact HENT: Yes: WNL, Atraumatic, Normocephalic Neck: Yes: WNL, Supple, Trachea Midline Cardiovascular: Yes: WNL, Regular Rate and Rhythm Breast(s): Yes: WNL - Abdominal Exam/OB Fundal Height: 40 Number of Fetuses: Single Presentation: Vertex Contractions: Yes Regularity: Regular Intensity: Mod/Strong Monitor Mode: External Heart Rate Location: [facility] Category: I Accelerations: Uniform Decelerations: None - Vaginal Exam/OB Vaginal Bleediing: No Speculum Exam: No Dilatation (cm): 3 cm Effacement (%): 80 Amniotic Membrane Status: Intact Presentation: Vertex/Position Station: -1 - Physical Exam Musculoskeletal: Yes: WNL Extremities: Yes: WNL Edema: No Edema: LLE: Trace, RLE: Trace Deep Tendon Reflex Grade: Normal +2 - Labs Lab Results: CBC, BMP 02/15/18 09:11 02/15/18 09:11 Hemorrhage Risk Assessment - Risk Factors Medium Risk Factors: Yes: None High Risk Factors: Yes: None Risk Score: 1 Risk Level: Medium Risk Problem List - Problems (1) Post term over 40 weeks Code(s): O48.0 - POST-TERM (2) Labor established Code(s): GND9335 - Assessment/Plan admit, fhm, pain management
[2018-02-15] MEDS ORDERED: OXYTOCIN 20 UNITS in 0.9% NS 20 UNIT/1,000 ML INFUS.BAG IV SCH (21:15)
[2018-02-15] MEDS ORDERED: METHYLERGONOVINE MALEATE 0.2 MG/1 ML AMP IM PRN (21:40)
[2018-02-15] MEDS ORDERED: BENZOCAINE 28 GM HEMORRHOIDAL OINTMENT TP PRN (21:40)
[2018-02-15] MEDS ORDERED: WITCH HAZEL 50% (TUCKS) 40 PAD/JAR PAD TP PRN (21:41)
[2018-02-15] MEDS ORDERED: BENZOCAINE 20% 57 GM BOTTLE TP PRN (21:41)
[2018-02-15] MEDS ORDERED: BISACODYL 10 MG SUPP.RECT RC PRN (21:42)
[2018-02-15] MEDS: ACETAMINOPHEN 325 MG TABLET (FP) PO PRN (22:23)
[2018-02-15] MEDS: SENNOSIDES/DOCUSATE COMBO (SENNA PLUS) TABLET (UD) PO PRN (22:24)
[2018-02-15] MEDS: IBUPROFEN 600 MG TABLET (FP) PO PRN (22:24)
--- NOTE | 2018-02-16 07:07 | PN ---
Progress Note (short form) - Note Progress Note: ppd 1, s/p , no c/o ,no excess vaginal bleeding CBC, BMP 02/15/18 09:11 02/15/18 09:11 Last Vital Signs Temp Pulse Resp BP Pulse Ox 98.7 F 97 H 20 131/65 98 02/16/18 04:00 02/16/18 04:00 02/16/18 04:00 02/16/18 04:00 02/15/18 18:45 abdomen soft, no distension, no cva uterus firm, non tender no excess vaginal bleeding no calf tenderness plan ambulate, cbc Problem List - Problems (1) Post term over 40 weeks Code(s): O48.0 - POST-TERM (2) Labor established Code(s): ABY3775 -
[2018-02-16 07:52] LABS: BASO % 0.2 % (0-2.0); EOS % 0.2 % (0-4.5); HEMATOCRIT 33.5 % (32.4-45.2); HEMOGLOBIN 10.9 GM/dL (10.7-15.3); LYMPH % 10.7 % (8-40); MCHC 32.6 g/dl (32.0-36.0); MEAN CELL VOLUME 92.1 fl (80-96); MEAN PLT VOLUME 9.3 fl (7.5-11.1); MONO % 8.5 % (3.8-10.2); NEUT % 80.4 % (42.8-82.8); PLATELET COUNT 201 K/MM3 (134-434); RBC 3.64 M/mm3 (3.60-5.2); RDW 14.7 % (11.6-15.6); WHITE BLOOD COUNT 16.8 K/mm3 (4.0-10.0)
[2018-02-16] MEDS: ACETAMINOPHEN 325 MG TABLET (FP) PO PRN (21:02)
[2018-02-16] MEDS: IBUPROFEN 600 MG TABLET (FP) PO PRN (21:02)
[2018-02-16] MEDS: SENNOSIDES/DOCUSATE COMBO (SENNA PLUS) TABLET (UD) PO PRN (21:05)
[2018-02-17 08:20] VITALS: BP 124/72; PULSE 74; TEMP 97.9
--- NOTE | 2018-02-17 08:48 | PN ---
Post Progress Note - Subjective Subjective: No complains Post Day: 2 Type of Delivery: Vital Signs: Vital Signs Temperature 97.9 F 02/17/18 07:20 Pulse Rate 74 02/17/18 07:20 Respiratory Rate 20 02/17/18 07:20 Blood Pressure 124/72 02/17/18 07:20 O2 Sat by Pulse Oximetry (%) 98 02/15/18 18:45 Breast Exam: Yes: Soft Uterus: Yes: Fundus Firm Abdomen/GI: Yes: Abdomen soft Lochia: Yes: Rubra Lochia, amount: Small Extremities: Yes: Calves non-tender Perineum: Yes: Intact Activity: Ambulating - Labs Labs: CBC WBC 16.8 K/mm3 (4.0-10.0) H 02/16/18 06:30 RBC 3.64 M/mm3 (3.60-5.2) 02/16/18 06:30 Hgb 10.9 GM/dL (10.7-15.3) 02/16/18 06:30 Hct 33.5 % (32.4-45.2) D 02/16/18 06:30 MCV 92.1 fl (80-96) 02/16/18 06:30 MCH 30.0 pg (25.7-33.7) 02/16/18 06:30 MCHC 32.6 g/dl (32.0-36.0) 02/16/18 06:30 RDW 14.7 % (11.6-15.6) 02/16/18 06:30 Plt Count 201 K/MM3 (134-434) D 02/16/18 06:30 MPV 9.3 fl (7.5-11.1) 02/16/18 06:30 Absolute Neuts (auto) 13.5 K/mm3 (1.5-8.0) H 02/16/18 06:30 Neutrophils % 80.4 % (42.8-82.8) 02/16/18 06:30 Lymphocytes % 10.7 % (8-40) 02/16/18 06:30 Monocytes % 8.5 % (3.8-10.2) D 02/16/18 06:30 Eosinophils % 0.2 % (0-4.5) D 02/16/18 06:30 Basophils % 0.2 % (0-2.0) 02/16/18 06:30 Nucleated RBC % 0 % (0-0) 02/16/18 06:30 Assessment/Plan 1. Doing well 2. VSS, Afebrile, no evidance of acute blood loss 3. Rh positive status, no rhogam indicated. 4. Encourage ambulation 5. Continue oral pain medication 6. Discharge home today, pending WBC result 7. Instructed on Pelvic rest for 6weeks 8. Return to office in 4-6 weeks
--- NOTE | 2018-02-17 09:20 | DS ---
Physical Exam-ELECTRICAL MAINTENANCE MAN Vital Signs: Vital Signs Temperature 97.9 F 02/17/18 07:20 Pulse Rate 74 02/17/18 07:20 Respiratory Rate 20 02/17/18 07:20 Blood Pressure 124/72 02/17/18 07:20 O2 Sat by Pulse Oximetry (%) 98 02/15/18 18:45 Constitutional: Yes: Well Nourished, No Distress, Calm Eyes: Yes: WNL, Conjunctiva Clear HENT: Yes: WNL, Atraumatic, Normocephalic Neck: Yes: WNL, Supple Cardiovascular: Yes: WNL, Regular Rate and Rhythm Respiratory: Yes: WNL, Regular, CTA Bilaterally Gastrointestinal: Yes: WNL, Normal Bowel Sounds, Soft External Genitalia: Yes: Normal ....Post : Yes: Uterus firm, Uterus non-tender Breast(s): Yes: WNL Musculoskeletal: Yes: WNL Extremities: Yes: WNL Edema: No Integumentary: Yes: WNL Neurological: Yes: WNL, Alert, Oriented ...Motor Strength: WNL Psychiatric: Yes: WNL, Alert, Oriented Labs: CBC, BMP 02/16/18 06:30 02/15/18 09:11 Delivery - Delivery Type of Anesthesia: Local Episiotomy/Laceration: Vaginal Extension/lac, 2nd degree EBL (cc): 300 Delivery, Single - Stages of Labor Date 1st Stage Initiatied: 02/15/18 Time 1st Stage Initiated: 01:00 Date 2nd Stage Initiated: 02/15/18 Time 2nd Stage Initiated: 17:50 Date of Delivery: 02/15/18 Time of Delivery: 17:56 Time Placenta Delivered: 18:00 - Condition of Well Service Floor Worker/Medical Pathology Teacher Present: No Infant Gender: Male Weight: 7 lb Position: Left, OA Total Hours ROM (Hrs/Mins): 5 MINS - 1 Minute Total Score: 9 5 Minutes Total Score: 9 - [place] Feeding Plan Initial Plan: Exclusive throughout hospitalization Discharge Summary Reason For Visit: LABOR Current Active Problems Labor established (Acute) Post term over 40 weeks (Acute) Procedures: Principal: Vaginal delivery Hospital Course: Unremarkable Condition: Good - Instructions Diet, Activity, Other Instructions: Physical activity Resume your normal everyday activity as tolerated no heavy lifting or exercise until seen by your surgeon. You may walk unlimited angie of and climb stairs. You may resume driving the car when you feel safe and comfortable behind the wheel. No sexual activity as instructed. Wound care If you have a bandage, leave it on, and keep dry for 48-72 hours. After that time discard the outer bandage. If they are tapes on the skin under the out of bandage leave them in place. They will peel off in the next 7 to 10 days. Do Not Peel them off. You may shower the day after surgery. If there are tapes present on the skin, you may shower over them. Diet There are no dietary restrictions. Eat healthy, high-fiber foods. Drink 6 to 8 glasses of liquid each day. This will assist in keeping your bowels are regular. Pain management You may take Tylenol or acetaminophen or Ibuprofen (for example, Motrin, Advil etc.) from my pain prescription medication is ordered should be taken as prescribed for moderate to severe pain. Call MD for any of the following: Severe pain not relieved by medication Fever of 101 or higher Excessive bleeding or drainage on dressing Inability to urinate Referrals: Maddie Leija MD [Staff Physician] - Disposition: HOME - Home Medications Comprehensive Discharge Medication List: Ambulatory Orders Vit/Iron Fum/Folic AC [ Tablet] 1 each PO DAILY 10/09/17
[2018-02-17 10:59] LABS: BASO % 0.7 % (0-2.0); EOS % 0.8 % (0-4.5); HEMATOCRIT 34.8 % (32.4-45.2); HEMOGLOBIN 11.3 GM/dL (10.7-15.3); LYMPH % 17.5 % (8-40); MCH 29.5 pg (25.7-33.7); MCHC 32.5 g/dl (32.0-36.0); MEAN CELL VOLUME 90.8 fl (80-96); MEAN PLT VOLUME 8.8 fl (7.5-11.1); MONO % 5.4 % (3.8-10.2); NEUT % 75.6 % (42.8-82.8); PLATELET COUNT 229 K/MM3 (134-434); RBC 3.84 M/mm3 (3.60-5.2); RDW 14.9 % (11.6-15.6); WHITE BLOOD COUNT 11.8 K/mm3 (4.0-10.0)
== END 2018-02-17 13:10 | disposition home or self-care (01) | DRG 807 ==
LOC: JLDR 07:35 → J3W 20:15
PROVIDERS: ADMIT Obstetrics & Gynecology; ATTEND Obstetrics & Gynecology
PROC: 10E0XZZ Delivery of Products of Conception, External Approach (ICD-10-PCS; principal; 2018-02-15)
PROC: 0KQM0ZZ Repair Perineum Muscle, Open Approach (ICD-10-PCS; 2018-02-15)
DX: O48.0 Post-term pregnancy (principal); Z37.0 Single live birth; O70.1 Second degree perineal laceration during delivery; Z3A.40 40 weeks gestation of pregnancy
CPT/HCPCS: 36415; 59409; 80048; 85025; 85610; 85730; 86593; 86850; 86900; 86901; 87389

== ENCOUNTER 2018-05-26 20:47 | Emergency (ER) | payer BC, OTHER ==
--- NOTE | 2018-05-26 21:03 | PDOC ---
Rapid Medical Evaluation Chief Complaint: Pain Time Seen by Provider: 05/26/18 21:01 Medical Evaluation: Allergies Allergy/AdvReac Type Severity Reaction Status Date / Time No Known Allergies Allergy Verified 02/15/18 08:13 05/26/18 21:02 I have performed a brief in person evaluation of this patient. CC: Cyst HPI: Pt is a 22 YO female who states she has a hx of pilonidal cyst and it has returned. PE: Skin: unable to be evaluated at triage Lungs: Clear Heart:RRR MS: Moves all extremities without difficulty Neuro: Alert and oriented Psych: Appropriate affect Pt will proceed to the main ED for further evaluation. 05/26/18 21:03 Discharge Disposition - Diagnosis Pilonidal abscess - Referrals - Patient Instructions - Post Discharge Activity
[2018-05-26 21:06] VITALS: BP 116/68; PULSE 81; TEMP 98.4; BMI 29.2
--- NOTE | 2018-05-26 21:47 | PDOC ---
*Physical Exam - Vital Signs Last Vital Signs Temp Pulse Resp BP Pulse Ox 98.4 F 81 17 116/68 99 05/26/18 21:02 05/26/18 21:02 05/26/18 21:02 05/26/18 21:02 05/26/18 21:02 Medical Decision Making - Medical Decision Making 05/26/18 21:47 Patient seen by the advanced practice provider under my direct supervision. Ancillary testing reviewed as necessary. I agree with plan as outlined by the advanced practice provider. *DC/Admit/Observation/Transfer Diagnosis at time of Disposition: Pilonidal abscess - Discharge Dispostion Disposition: HOME - Prescriptions Prescriptions: Ibuprofen 600 mg PO QID PRN #20 tablet PRN Reason: Pain - Referrals Referrals: Epifanio Nesbitt MD [Staff Physician] - Call tomorrow Grant Novoa MD [Primary Care Provider] - - Patient Instructions Printed Discharge Instructions: DI for Pilonidal Cyst Drainage and Removal Additional Instructions: keep packing in place. return in 2 days for packing removal. follow up with surgery outpatient. ' Additional Instructions: * Please call your personal physician to report your Emergency Department visit and to report your progress, if any. * If there is no improvement in symptoms in 2 days call your physician. * Return to the Emergency Department for any worsening symptoms. - Post Discharge Activity Forms/Work/School Notes: Back to Work
--- NOTE | 2018-05-26 22:13 | PDOC ---
History of Present Illness - General Chief Complaint: Pain Stated Complaint: CYST Time Seen by Provider: 05/26/18 21:01 History Source: Patient - History of Present Illness Initial Comments: 05/26/18 22:43 22-year-old female with multiple incision and drainage for pilonidal cyst complaining of anal abscess with increased pain for the last 2 days denies fevers/chills. Denies oral antibiotics. s/p cyst removal by Dr. winston 05/2017. reports having abscess once per month since February. Past History - Past Medical History Allergies/Adverse Reactions: Allergies Allergy/AdvReac Type Severity Reaction Status Date / Time No Known Allergies Allergy Verified 05/26/18 21:05 Home Medications: Ambulatory Orders Vit/Iron Fum/Folic AC [ Tablet] 1 each PO DAILY 10/09/17 Ibuprofen [Motrin -] 600 mg PO TID #21 tablet 02/17/18 Ibuprofen 600 mg PO QID PRN #20 tablet 05/26/18 Asthma: No Cancer: No Cardiac Disorders: No COPD: No Diabetes: No HTN: No Seizures: No Thyroid Disease: No - Immunization History Immunization Up to Date: Yes - Suicide/Smoking/Psychosocial Hx Smoking History: Never smoked Have you smoked in the past 12 months: No Number of Cigarettes Smoked Daily: 0 Cigars Per Day: 0 Information on smoking cessation initiated: No Hx Alcohol Use: No Drug/Substance Use Hx: No Substance Use Type: None Hx Substance Use Treatment: No Review of Systems - Review of Systems Able to Perform ROS?: Yes Is the patient limited Frisian proficient: No Constitutional: No: Symptoms Reported, See HPI, Chills, Diaphoresis, Fever, Loss of Appetite, Malaise, Night Sweats, Weakness, Weight Stable, Unintentional Wgt. Loss, Unexplained wgt Loss, Other : Yes: Other (pilonidal cyst) *Physical Exam - Vital Signs Last Vital Signs Temp Pulse Resp BP Pulse Ox 98.4 F 81 17 116/68 99 05/26/18 21:02 05/26/18 21:02 05/26/18 21:02 05/26/18 21:02 05/26/18 21:02 - Physical Exam General Appearance: Yes: Appropriately Dressed Gastrointestinal/Abdominal: positive: Normal Bowel Sounds, Soft Rectal Exam: positive: other (+ 3 cm fluctuant mass at the sacrum) Integumentary: positive: Normal Color, Dry, Warm Neurologic: positive: Fully Oriented, Alert Moderate Sedation - Procedure Monitoring Vital Signs: Procedure Monitoring Vital Signs Temperature 98.4 F 05/26/18 21:02 Pulse Rate 81 05/26/18 21:02 Respiratory Rate 17 05/26/18 21:02 Blood Pressure 116/68 05/26/18 21:02 O2 Sat by Pulse Oximetry (%) 99 05/26/18 21:02 Procedures - Incision and Drainage I&D Site: Left: Other (pilonidal) Betadine cleansed: Yes Anesthesia: 1% Lidocaine Blade Size: 11 Iodinated Packin/2 in Plain Packing: Yes Progress: 05/26/18 22:50 drained 10 ml of pus drainage and serosanguinous drainage Medical Decision Making - Medical Decision Making 05/26/18 22:49 A: Pilonidal cyst *DC/Admit/Observation/Transfer Diagnosis at time of Disposition: Pilonidal abscess - Discharge Dispostion Disposition: HOME - Prescriptions Prescriptions: Ibuprofen 600 mg PO QID PRN #20 tablet PRN Reason: Pain - Referrals Referrals: Grant Novoa MD [Primary Care Provider] - Epifanio Nesbitt MD [Staff Physician] - Call tomorrow - Patient Instructions Printed Discharge Instructions: DI for Pilonidal Cyst Drainage and Removal Additional Instructions: keep packing in place. return in 2 days for packing removal. follow up with surgery outpatient. ' Additional Instructions: * Please call your personal physician to report your Emergency Department visit and to report your progress, if any. * If there is no improvement in symptoms in 2 days call your physician. * Return to the Emergency Department for any worsening symptoms. - Post Discharge Activity Forms/Work/School Notes: Back to Work
== END 2018-05-26 23:09 | disposition home or self-care (01) ==
LOC: JER 20:47
PROC: 0H98XZZ Drainage of Buttock Skin, External Approach (ICD-10-PCS; principal; 2018-05-26)
PROC: 0H98XZZ Drainage of Buttock Skin, External Approach (ICD-10-PCS; 2018-05-26)
DX: L05.01 Pilonidal cyst with abscess (principal)
CPT/HCPCS: 99281-25